=== PATIENT | female | born 1980 | race African-American/Black ===

== ENCOUNTER 2020-01-21 17:30 | Emergency (ER) | payer OTHER ==
[~2020-01-21] VITALS: Ht 165.1 cm; Wt 124.0 kg
[2020-01-21] MEDS ORDERED: KETOROLAC 60MG/2ML VIAL IM STA (21:41)
[2020-01-21] MEDS ORDERED: HYDROCODONE/ACETAMINOPHEN 5/325MG TABLET PO ONE (23:45)
[2020-01-22 01:35] VITALS: BP 136/66
== END 2020-01-22 01:36 | disposition home or self-care (01) ==
LOC: ER 17:30
DX: S92.322A Displaced fracture of second metatarsal bone, left foot, initial encounter for closed fracture (principal); S20.219A Contusion of unspecified front wall of thorax, initial encounter; S16.1XXA Strain of muscle, fascia and tendon at neck level, initial encounter; V43.52XA Car driver injured in collision with other type car in traffic accident, initial encounter; Y93.89 Activity, other specified; Y92.410 Unspecified street and highway as the place of occurrence of the external cause
CPT/HCPCS: 29515; 71045; 73562; 73610; 73630; 81025; 96372; 99284; J1885